=== PATIENT | female | born 1940 | race Caucasian/White ===

== ENCOUNTER → 2016-11-05 10:17 | Outpatient (CLI) | payer MEDICARE, BC ==
[2016-09-03 14:59] VITALS: BMI 23.8
[~2016-11-05 10:17] MED LIST: ZETIA10 MG PO; [UNRECOGNIZED DRUG - OTHER] PO
== END | disposition home or self-care (01) ==
LOC: D.MRI 10:17
DX: M54.5 Low back pain (principal)

== ENCOUNTER → 2017-06-23 17:37 | Outpatient (CLI) | payer MEDICARE, BC ==
[2016-09-03 14:59] VITALS: BMI 23.8
== END | disposition home or self-care (01) ==
LOC: D.MAMMO 14:00
DX: Z12.31 Encounter for screening mammogram for malignant neoplasm of breast (principal)

== ENCOUNTER → 2017-07-27 14:28 | Outpatient (CLI) | payer MEDICARE, BC ==
[2016-09-03 14:59] VITALS: BMI 23.8
== END | disposition home or self-care (01) ==
LOC: D.MAMMO 10:00
DX: R92.8 Other abnormal and inconclusive findings on diagnostic imaging of breast (principal)

== ENCOUNTER → 2017-09-06 17:55 | Outpatient (CLI) | payer MEDICARE, BC ==
[2016-09-03 14:59] VITALS: BMI 23.8
[2017-09-06 18:31] LABS: ALBUMIN 3.7 g/dL (3.4-5.0); BILIRUBIN - DIRECT 0.07 mg/dL (0.00-0.30); BILIRUBIN - INDIRECT 0.18 mg/dL (0.00-1.00); BILIRUBIN - TOTAL 0.25 mg/dL (0.2-1.3); CHOL - HDL RATIO 3.2 ratio (2.3-4.1); LDL-HDL RATIO 1.9 ratio (1.5-3.5); PROTEIN - SERUM 6.1 g/dL (6.4-8.2)
== END | disposition home or self-care (01) ==
LOC: D.LABREF 17:55
PROVIDERS: Internal Medicine Cardiovascular Disease
DX: E78.5 Hyperlipidemia, unspecified (principal); I20.9 Angina pectoris, unspecified

== ENCOUNTER → 2017-09-09 20:10 | Outpatient (CLI) | payer MEDICARE, BC ==
[2016-09-03 14:59] VITALS: BMI 23.8
[2017-09-09 21:05] LABS: APPEARANCE CLEAR (CLEAR); BILIRUBIN NEGATIVE (NEGATIVE); COLOR YELLOW (YELLOW); GLUCOSE NEGATIVE (NEGATIVE); KETONE NEGATIVE (NEGATIVE); NITRITE NEGATIVE (NEGATIVE); PROTEIN TRACE mg/dL (NEGATIVE); SPECIFIC GRAVITY 1.025 (1.005-1.020); UROBILINOGEN NORMAL (NORMAL)
[2017-09-09 21:06] LABS: BACTERIA MODERATE /hpf (NONE SEEN); EPITHELIAL CELLS 0-5 /hpf (0-5); RED CELLS - URINE 0-5 /hpf (0-5); WHITE CELLS - URINE 25-50 /hpf (0-5)
== END | disposition home or self-care (01) ==
LOC: D.LABREF 20:10
PROVIDERS: Urology
DX: R82.90 Unspecified abnormal findings in urine (principal)

== ENCOUNTER → 2018-04-19 23:41 | Outpatient (CLI) | payer MEDICARE, BC ==
[2016-09-03 14:59] VITALS: BMI 23.8
== END | disposition home or self-care (01) ==
LOC: D.MAMMO 01-25 09:00
DX: R92.8 Other abnormal and inconclusive findings on diagnostic imaging of breast (principal)

== ENCOUNTER 2018-10-03 12:52 | Inpatient (IN) | payer MEDICARE, BC ==
[~2018-10-03] VITALS: Ht 157.5 cm; Wt 60.8 kg
[2018-10-03] MEDS ORDERED: MOBIC7.5 MG PO (13:37)
[2018-10-03] MEDS ORDERED: ULTRAM50 MG PO (13:37)
[2018-10-03] MEDS ORDERED: ARICEPT23 MG PO (13:38)
[2018-10-03] MEDS ORDERED: BAYER CHEWABLE81 MG PO (13:39)
[2018-10-03] MEDS ORDERED: ALENDRONAT70 MG/75 M PO (13:39)
[2018-10-03 13:48] VITALS: BP 135/79; BMI 24.5
[2018-10-03 14:25] LABS: BASOPHILS 0.3 % (0-2); EOSINOPHILS 1.8 % (0-7); HEMATOCRIT 42.5 % (36.0-48.0); HEMOGLOBIN 14.2 g/dL (12-16); IMMATURE GRANULOCYTES 0.5 % (0-5); LYMPHOCYTES 19.9 % (15-50); MCH 31.2 pg (26.0-34.0); MCHC 33.4 g/dL (31.0-37.0); MCV 93.4 fL (80.0-100.0); MEAN PLATELET VOLUME 9.8 fL (7.4-10.4); MONOCYTES 7.7 % (2-11); NEUTROPHILS 69.8 % (40-80); PLATELET COUNT 361 10x3/uL (130-400); RBC 4.55 10x6/uL (4.00-5.40); RDW 12.5 % (11.5-14.5); WBC 7.8 10x3/uL (4.8-10.8)
[2018-10-03 16:06] VITALS: BP 105/66
[2018-10-03 16:14] LABS: ALBUMIN 3.3 g/dL (3.4-5.0); ALKALINE PHOSPHATASE 133 U/L (46-116); ALT (SGPT) 22 U/L (10-68); BILIRUBIN - TOTAL 0.31 mg/dL (0.2-1.3); CALC OSMOLALITY 285 mosm/kg (275-300); CALCIUM 8.9 mg/dL (8.5-10.1); CARBON DIOXIDE 27.7 mmol/L (21.0-32.0); CHLORIDE - SERUM 103 mmol/L (98-107); CREATININE - SERUM 0.5 mg/dL (0.6-1.3); GLUCOSE 80 mg/dL (74-106); PROTEIN - SERUM 6.4 g/dL (6.4-8.2); SODIUM 141 mmol/L (136-145); UREA NITROGEN 28 mg/dL (7-18); eGFR NON AFRICAN AMERICAN > 90 mL/min (90-120)
[2018-10-03 21:23] VITALS: BP 136/62
[2018-10-04 01:09] VITALS: BP 135/65
[2018-10-04 04:34] VITALS: BP 148/80
[2018-10-04 08:39] VITALS: BP 116/62
[2018-10-04 09:45] LABS: BASOPHILS 0.3 % (0-2); EOSINOPHILS 2.3 % (0-7); HEMATOCRIT 43.2 % (36.0-48.0); HEMOGLOBIN 14.6 g/dL (12-16); IMMATURE GRANULOCYTES 0.5 % (0-5); LYMPHOCYTES 22.1 % (15-50); MCH 31.6 pg (26.0-34.0); MCHC 33.8 g/dL (31.0-37.0); MCV 93.5 fL (80.0-100.0); MONOCYTES 9.8 % (2-11); PLATELET COUNT 363 10x3/uL (130-400); RBC 4.62 10x6/uL (4.00-5.40); RDW 12.5 % (11.5-14.5); WBC 6.4 10x3/uL (4.8-10.8)
[2018-10-04 09:56] LABS: CALC OSMOLALITY 280 mosm/kg (275-300); CARBON DIOXIDE 27.9 mmol/L (21.0-32.0); CHLORIDE - SERUM 101 mmol/L (98-107); CREATININE - SERUM 0.6 mg/dL (0.6-1.3); GLUCOSE 109 mg/dL (74-106); POTASSIUM - SERUM 3.9 mmol/L (3.5-5.1); SODIUM 139 mmol/L (136-145); eGFR NON AFRICAN AMERICAN > 90 mL/min (90-120)
[2018-10-04 09:57] LABS: UREA NITROGEN 19 mg/dL (7-18)
[2018-10-04 13:17] VITALS: BP 122/71
[2018-10-04 13:28] VITALS: Ht 157.5 cm; Wt 60.8 kg
--- NOTE | 2018-10-04 14:30 | MORECARE ---
CASE MANAGEMENT DISCHARGE SUMMARY PATIENT: DYAN FAIR UNIT: [id number] ADM DATE: 10/03/18 AGE: 78 : 40 SEX: F ROOM/BED: D.2238 AUTHOR: ANGEL,DOC PHYSICIAN: REFERRING PHYSICIAN: LEOBARDO KIM MD DATE OF SERVICE: 10/04/18 Discharge Plan Patient Name: DYAN FAIR Facility: [facility]:[place] : 1940 Planned Disposition: Residential Facility Anticipated Discharge Date: Discharge Date: Expected LOS: Initial Reviewer: [email or web address] Initial Review Date: 10/03/2018 Generated: 10/04/18 3:29 pm Comments DCP- Discharge Planning Updated by [email or web address]: Yolanda Mann on 10/04/18 1:[address] Patient Name: DYAN FAIR Admission Status: Urgent Accout number: [id number] Admission Date: 10-03-2018 : 1940 Admission Diagnosis: Attending: JUDY, Current LOS: 1 Anticipated DC Date: Planned Disposition: Residential Facility Primary Insurance: MEDICARE A & B Discharge Planning Comments: CM spoke with patients (friend present for conversation). States she has been living with sig other and he 2 weeks ago. His daughter has been staying with her since then. Discussed Dr. Kim's rec for admission to [facility]. Pt agrees with that plan. States she was there last year after knee surgery and very pleased with care. Pt states she would like to live there. [facility] Referral called to Aileen at [facility]. Case management will continue to follow and assist. Digital Communications Manager: Yolanda Mann DCPIA - Discharge Planning Initial Assessment Updated by [id number]: Yolanda Mann on 10/04/18 2:24 pm * Is the patient Alert and Oriented? Yes * How many steps to enter\exit or inside your home? 0/ramp * PCP [facility] [place] * Pharmacy [facility] * Preadmission Environment Home with Family * ADLs Independent * Equipment Bedside Commode Rolling Walker Shower Chair Wheelchair * List name and contact numbers for known caregivers / representatives who currently or will assist patient after discharge: Sandra (friend)[phone] * Verbal permission to speak to the caregivers and representatives has been obtained from the patient. Yes * Community resources currently utilized None * Additional services required to return to the preadmission environment? Yes * Can the patient safely return to the preadmission environment? No * Has this patient been hospitalized within the prior 30 days at any hospital? No Patient Name: DYAN FAIR Page [id number] at 1430 All edits/amendments must be made on the electronic document DICTATION DATE: 10/04/181428 PRINTING PRESSMAN: JERRY 10/04/181428 RPT#: [id number] DC DATE: STATUS: ADM IN [facility] [address] [place] [address] END OF REPORT
--- NOTE | 2018-10-04 14:40 | MORECARE ---
CASE MANAGEMENT DISCHARGE SUMMARY PATIENT: DYAN FAIR UNIT: [id number] ADM DATE: 10/03/18 AGE: 78 : 40 SEX: F ROOM/BED: D.2238 AUTHOR: ANGEL,DOC PHYSICIAN: REFERRING PHYSICIAN: LEOBARDO KIM MD DATE OF SERVICE: 10/04/18 Discharge Plan Patient Name: DYAN FAIR Facility: [facility]:[place] : 1940 Planned Disposition: Fci Facility Anticipated Discharge Date: Discharge Date: Expected LOS: Initial Reviewer: [email or web address] Initial Review Date: 10/03/2018 Generated: 10/04/18 3:40 pm Comments DCP- Discharge Planning Updated by [email or web address]: Yolanda Mann on 10/04/18 1:[address] Patient Name: DYAN FAIR Admission Status: Urgent Accout number: [id number] Admission Date: 10-03-2018 : 1940 Admission Diagnosis: Attending: JUDY, Current LOS: 1 Anticipated DC Date: Planned Disposition: Fci Facility Primary Insurance: MEDICARE A & B Discharge Planning Comments: CM spoke with patients (friend present for conversation). States she has been living with sig other and he 2 weeks ago. His daughter has been staying with her since then. Discussed Dr. Kim's rec for admission to [facility]. Pt agrees with that plan. States she was there last year after knee surgery and very pleased with care. Pt states she would like to live there. CM [facility]. Referral called to Aileen at [facility]. Case management will continue to follow and assist. Cosmetic Manager: Yolanda Mann DCPIA - Discharge Planning Initial Assessment Updated by [email or web address]: Yolanda Mann on 10/04/18 2:24 pm * Is the patient Alert and Oriented? Yes * How many steps to enter\exit or inside your home? 0/ramp * PCP [facility] * Pharmacy [facility] * Preadmission Environment Home with Family * ADLs Independent * Equipment Bedside Commode Rolling Walker Shower Chair Wheelchair * List name and contact numbers for known caregivers / representatives who currently or will assist patient after discharge: Sandra (friend)[phone] * Verbal permission to speak to the caregivers and representatives has been obtained from the patient. Yes * Community resources currently utilized None * Additional services required to return to the preadmission environment? Yes * Can the patient safely return to the preadmission environment? No * Has this patient been hospitalized within the prior 30 days at any hospital? No External Providers External Provider: [facility] Next Contact Date: Service Request Date: Service Type: Resolution: Reviewer: Comments: Last DP export: 10/04/18 1:30 p Patient Name: DYAN FAIR Page [phone] at 1440 All edits/amendments must be made on the electronic document DICTATION DATE: 10/04/18 1440 ENTERPRISE ACCOUNT EXECUTIVE: JERRY 10/04/18 1440 RPT#: [id number] DC DATE: STATUS: ADM IN [facility] [address] [place] [address] END OF REPORT
--- NOTE | 2018-10-04 15:36 | MORECARE ---
CASE MANAGEMENT DISCHARGE SUMMARY PATIENT: DYAN FAIR UNIT: [id number] ADM DATE: 10/03/18 AGE: 78 : 40 SEX: F ROOM/BED: D.2238 AUTHOR: ANGEL,DOC PHYSICIAN: REFERRING PHYSICIAN: LEOBARDO KIM MD DATE OF SERVICE: 10/04/18 Discharge Plan Patient Name: DYAN FAIR Facility: [facility]:[place] : 1940 Planned Disposition: Retirement Facility Anticipated Discharge Date: Discharge Date: Expected LOS: Initial Reviewer: [email or web address] Initial Review Date: 10/03/2018 Generated: 10/04/18 4:36 pm Comments DCP- Discharge Planning Updated by [email or web address]: Letha Bowers on 10/04/18 2:[address] [facility] would accept pt on Tuesday, if ready for discharge. DCP- Discharge Planning Updated by [email or web address]: Yolanda Mann on 10/04/18 1:[address] Patient Name: DYAN FAIR Admission Status: Urgent Accout number: [id number] Admission Date: 10-03-2018 : 1940 Admission Diagnosis: Attending: JUDY, Current LOS: 1 Anticipated DC Date: Planned Disposition: Retirement Facility Primary Insurance: MEDICARE A & B Discharge Planning Comments: CM spoke with patients (friend present for conversation). States she has been living with sig other and he 2 weeks ago. His daughter has been staying with her since then. D[facility]ed Dr. [facility] Pt agrees with that plan. States she was there last year after knee surgery and very pleased with care. Pt states she would like to live there. CM discussed [facility] her [facility] that [facility]. Referral called to Aileen at [facility]. Case management will continue to follow and assist. Eeler: Yolanda Mann DCPIA - Discharge Planning Initial Assessment Updated by [email or web address]: Yolanda Mann on 10/04/18 2:24 pm * Is the patient Alert and Oriented? Yes * How many steps to enter\exit or inside your home? 0/ramp * PCP [facility] * Pharmacy [facility] * Preadmission Environment Home with Family * ADLs Independent * Equipment Bedside Commode Rolling Walker Shower Chair Wheelchair * List name and contact numbers for known caregivers / representatives who currently or will assist patient after discharge: Sandra (friend)[phone] * Verbal permission to speak to the caregivers and representatives has been obtained from the patient. Yes * Community resources currently utilized None * Additional services required to return to the preadmission environment? Yes * Can the patient safely return to the preadmission environment? No * Has this patient been hospitalized within the prior 30 days at any hospital? No Last DP export: 10/04/18 1:40 p Patient Name: DYAN FAIR Page 05600 at 1536 All edits/amendments must be made on the electronic document DICTATION DATE: 10/04/181535 OFFICE SERVICE COORDINATOR: JERRY 10/04/181535 RPT#: [id number] DC DATE: STATUS: ADM IN [facility] [address] [place] [address] END OF REPORT
[2018-10-04 16:49] VITALS: BP 131/68
[2018-10-04 21:34] VITALS: BP 129/69
[2018-10-05] VITALS (7 sets, daily range): BP systolic 111–164; BP diastolic 63–80
[2018-10-05 06:20] LABS: BASOPHILS 0.3 % (0-2); EOSINOPHILS 3.4 % (0-7); HEMATOCRIT 41.5 % (36.0-48.0); HEMOGLOBIN 13.9 g/dL (12-16); IMMATURE GRANULOCYTES 0.5 % (0-5); LYMPHOCYTES 31.7 % (15-50); MCH 31.2 pg (26.0-34.0); MCHC 33.5 g/dL (31.0-37.0); MCV 93.3 fL (80.0-100.0); MEAN PLATELET VOLUME 10.2 fL (7.4-10.4); MONOCYTES 10.2 % (2-11); NEUTROPHILS 53.9 % (40-80); PLATELET COUNT 357 10x3/uL (130-400); RBC 4.45 10x6/uL (4.00-5.40); RDW 12.6 % (11.5-14.5); WBC 6.5 10x3/uL (4.8-10.8)
[2018-10-05 06:26] LABS: CALC OSMOLALITY 283 mosm/kg (275-300); CALCIUM 8.5 mg/dL (8.5-10.1); CARBON DIOXIDE 25.8 mmol/L (21.0-32.0); CHLORIDE - SERUM 104 mmol/L (98-107); CREATININE - SERUM 0.7 mg/dL (0.6-1.3); GLUCOSE 109 mg/dL (74-106); POTASSIUM - SERUM 3.5 mmol/L (3.5-5.1); SODIUM 140 mmol/L (136-145); eGFR NON AFRICAN AMERICAN 86 mL/min (90-120)
[2018-10-05 06:30] LABS: UREA NITROGEN 25 mg/dL (7-18)
[2018-10-06] VITALS: BP 120/63
[2018-10-06 04:00] VITALS: BP 123/71
[2018-10-06 09:33] VITALS: BP 128/66
[2018-10-06] MEDS ORDERED: HYDROCODON-ACE1 EAC7 PO (09:33)
[2018-10-06] MEDS ORDERED: MIRALAX17 GM PO (09:34)
--- NOTE | 2018-10-06 10:19 | MORECARE ---
CASE MANAGEMENT DISCHARGE SUMMARY PATIENT: DYAN FAIR UNIT: [id number] ADM DATE: 10/03/18 AGE: 78 : 40 SEX: F ROOM/BED: D.2238 AUTHOR: ANGEL,DOC PHYSICIAN: REFERRING PHYSICIAN: LEOBARDO KIM MD DATE OF SERVICE: 10/06/18 Discharge Plan Patient Name: DYAN FAIR Facility: [facility]:[place] : 1940 Planned Disposition: Intermediate Facility Anticipated Discharge Date: Discharge Date: Expected LOS: Initial Reviewer: [id number] Initial Review Date: 10/03/2018 Generated: 10/06/18 11:19 am Comments DCP- Discharge Planning Updated by [email or web address]: Yolanda Mann on 10/06/18 9:[address] Received orders for discharge. I called Sanjuana with [facility], they will pick her up at 1300. records coordinator informed. She is going to a skilled bed at [facility] today. CM will continue to follow and assist with discharge planning/needs. DCP- Discharge Planning Updated by [email or web address]: Letha Bowers on 10/04/18 2:[address] Aileen with [facility] called back and said they would accept pt on Tuesday, if ready for discharge. DCP- Discharge Planning Updated by [email or web address]: Yolanda Mann on 10/04/18 1:[address] Patient Name: DYAN FAIR Admission Status: Urgent Accout number: [id number] Admission Date: 10-03-2018 : 1940 Admission Diagnosis: Attending: JUDY, Current LOS: 1 Anticipated DC Date: Planned Disposition: Intermediate Facility Primary Insurance: MEDICARE A & B Discharge Planning Comments: CM spoke with patients (friend present for conversation). States she has been living with sig other and he 2 weeks ago. His daughter has been staying with her since then. Discussed Dr. Kim's rec for admission to [facility]. Pt agrees with that plan. States she was there last year after knee surgery and very pleased with care. Pt states she would like to live there. CM discussed that [facility] could assist her with that option. Referral called to Aileen at [facility]. Case management will continue to follow and assist. Cnc Lathe Machine Operator: Yolandamarielle Mann DCPIA - Discharge Planning Initial Assessment Updated by [email or web address]: Yolanda Mackenzie on 10/04/18 2:24 pm * Is the patient Alert and Oriented? Yes * How many steps to enter\exit or inside your home? 0/ramp * PCP [facility] * Pharmacy [facility] * Preadmission Environment Home with Family * ADLs Independent * Equipment Bedside Commode Rolling Walker Shower Chair Wheelchair * List name and contact numbers for known caregivers / representatives who currently or will assist patient after discharge: Sandra (friend)[phone] * Verbal permission to speak to the caregivers and representatives has been obtained from the patient. Yes * Community resources currently utilized None * Additional services required to return to the preadmission environment? Yes * Can the patient safely return to the preadmission environment? No * Has this patient been hospitalized within the prior 30 days at any hospital? No Last DP export: 10/04/18 2:36 p Patient Name: DYAN FAIR Page 54995 at 1019 All edits/amendments must be made on the electronic document DICTATION DATE: 10/06/18 1019 SUPERVISOR STITCHING DEPARTMENT: JERRY 10/06/18 1019 RPT#: [id number] DC DATE: STATUS: ADM IN [facility] [address] [place] [address] END OF REPORT
--- NOTE | 2018-10-10 07:17 | MORECARE ---
CASE MANAGEMENT DISCHARGE SUMMARY PATIENT: DYAN FAIR UNIT: [id number] ADM DATE: 10/03/18 AGE: 78 : 40 SEX: F ROOM/BED: D.2238 AUTHOR: ANGEL,DOC PHYSICIAN: REFERRING PHYSICIAN: LEOBARDO KIM MD DATE OF SERVICE: 10/10/18 Discharge Plan Patient Name: DYAN FAIR Facility: [facility]:[place] : 1940 Planned Disposition: Intermediate Facility Anticipated Discharge Date: Discharge Date: 10/06/2018 Expected LOS: 0 Initial Reviewer: [email or web address] Initial Review Date: 10/03/2018 Generated: 10/10/18 8:17 am Comments DCP- Discharge Planning Updated by [email or web address]: Yolanda Mann on 10/06/18 9:[address] Received orders for discharge. I called Sanjuana with [facility], they will pick her up at 1300. rehabilitation coordinator informed. She is going to a skilled bed at [facility] today. CM will continue to follow and assist with discharge planning/needs. DCP- Discharge Planning Updated by [email or web address]: Letha Bowers on 10/04/18 2:[address] [facility] and said they would accept pt on Tuesday, if ready for discharge. DCP- Discharge Planning Updated by [email or web address]: Yolanda Mann on 10/04/18 1:[address] Patient Name: DYAN FAIR Admission Status: Urgent Accout number: [id number] Admission Date: 10-03-2018 : 1940 Admission Diagnosis: Attending: JUDY, Current LOS: 1 Anticipated DC Date: Planned Disposition: Intermediate Facility Primary Insurance: MEDICARE A & B Discharge Planning Comments: CM spoke with patients (friend present for conversation). States she has been living with sig other and he 2 weeks ago. His daughter has been staying with her since then. Discussed Dr. Kim's rec [facility] Pt agrees with that plan. States she was there last year after knee surgery and very pleased with care. Pt states she would like to live there. CM discussed that [facility] could assist her with that option. Referral called to Aileen at [facility]. Case management will continue to follow and assist. Transfer And Line Up Worker: Yolanda Mann DCPIA - Discharge Planning Initial Assessment Updated by [email or web address]: Yolanda Mann on 10/04/18 2:24 pm * Is the patient Alert and Oriented? Yes * How many steps to enter\exit or inside your home? 0/ramp * PCP [facility] * Pharmacy [facility] * Preadmission Environment Home with Family * ADLs Independent * Equipment Bedside Commode Rolling Walker Shower Chair Wheelchair * List name and contact numbers for known caregivers / representatives who currently or will assist patient after discharge: Sandra (friend)[phone] * Verbal permission to speak to the caregivers and representatives has been obtained from the patient. Yes * Community resources currently utilized None * Additional services required to return to the preadmission environment? Yes * Can the patient safely return to the preadmission environment? No * Has this patient been hospitalized within the prior 30 days at any hospital? No Coverage Notice Reviewer: [id number] - Yolanda Mann Notice Issued Date-Time: 10/06/2018 10:19 Notice Type: IM Discharge Notice Notice Delivered To: Patient Relationship to Patient: Self Leather Novelty Parts Cutter Name: Delivery Method: HAND - Hand Delivered Petra Days: Prior Verbal Notification: Recipient Understood Notice: Yes Recipient Signature: Yes Med Rec Note Co-signed by Attending: Coverage Notice Comment: IMM explained, signed, copy given, original placed in MR Last DP export: 10/06/18 9:19 am Patient Name: DYAN FAIR Page 00292 at 0717 All edits/amendments must be made on the electronic document DICTATION DATE: 10/10/18715 ASBESTOS PIPE SUPERVISOR: JERRY 10/10/18715 RPT#: [id number] DC DATE:10/06/18 STATUS: DIS IN [facility] [address] [place] [address] END OF REPORT
== END 2018-10-06 13:10 | DRG 536 ==
LOC: D.SDCHOLD 12:52 → D.MS 12:52
PROVIDERS: Internal Medicine Nephrology; ADMIT Family Medicine
DX: S32.592A Other specified fracture of left pubis, initial encounter for closed fracture (principal); S32.10XA Unspecified fracture of sacrum, initial encounter for closed fracture; F03.90 Unspecified dementia, unspecified severity, without behavioral disturbance, psychotic disturbance, mood disturbance, and anxiety; R29.6 Repeated falls; R26.9 Unspecified abnormalities of gait and mobility